=== PATIENT | male | born 1955 | race Caucasian/White ===

== ENCOUNTER 2017-07-18 05:41 | Day surgery (SDC) | payer OTHER ==
[~2017-07-18] VITALS: Ht 180.3 cm; Wt 59.0 kg
[2017-07-18] MEDS ORDERED: LACTATED RINGERS 1,000 ML IV SCH (06:17)
[2017-07-18 06:18] VITALS: BP 131/82
[2017-07-18] MEDS ORDERED: LIDOCAINE 1%, 2ML SQ PRN (06:30)
[2017-07-18] MEDS ORDERED: LEVO75TA5 PO (06:34)
[2017-07-18] MEDS ORDERED: THROMBIN 5,000 UNIT VIAL TP ONE (06:53)
[2017-07-18] MEDS ORDERED: EPINEPHRINE 1 MG/ML, 1ML ONE (06:53)
[2017-07-18] MEDS ORDERED: BUPIVACAINE/PF 0.5% ONE (06:53)
[2017-07-18] MEDS ORDERED: BACITRACIN 50,000 UNIT ONE (06:53)
[2017-07-18] MEDS ORDERED: PROPOFOL 10 MG/ML, 20ML ONE (07:04)
[2017-07-18] MEDS ORDERED: DEXAMETHASONE 4 MG/ML, 1ML ONE ×2 (07:04→07:28)
[2017-07-18] MEDS ORDERED: ONDANSETRON 2MG/ML, 2ML ONE (07:04)
[2017-07-18] MEDS ORDERED: FENTANYL PF 250 MCG/5ML ONE (07:04)
[2017-07-18] MEDS ORDERED: SUCCINYLCHOLINE 20 MG/ML, 10ML ONE (07:04)
[2017-07-18] MEDS ORDERED: MIDAZOLAM 1 MG/ML, 2ML ONE (07:04)
[2017-07-18] MEDS ORDERED: LIDOCAINE GEL 2%, 5ML ONE (07:19)
[2017-07-18] MEDS ORDERED: CEFAZOLIN 1,000 MG ONE (07:23)
[2017-07-18] MEDS ORDERED: ALBUTEROL SULFATE 200 PUFFS/8.5 GR INH ONE (07:28)
[2017-07-18] MEDS ORDERED: ROCURONIUM 10 MG/ML,10ML ONE (07:28)
[2017-07-18] MEDS ORDERED: ALBUTEROL/IPRATROPIUM 2.5MG/0.5MG, 3 ML NPPB PRN (08:00)
[2017-07-18] MEDS ORDERED: EPHEDRINE 50 MG/ML, 1ML IVPush PRN (08:00)
[2017-07-18] MEDS ORDERED: MIDAZOLAM 1 MG/ML, 2ML IV PRN (08:00)
[2017-07-18] MEDS ORDERED: ACETAMINOPHEN 325 MG TABLET PO PRN (08:00)
[2017-07-18] MEDS ORDERED: OXYcodone 5 MG/5 ML ORAL.SOL UDC PO PRN (08:00)
[2017-07-18] MEDS ORDERED: HYDROmorphone 1 MG/ML, 1ML IV PRN (08:00)
[2017-07-18] MEDS ORDERED: ONDANSETRON 2MG/ML, 2ML IVPush PRN (08:00)
[2017-07-18] MEDS ORDERED: PROMETHAZINE 25 MG/ML, 1ML IV PRN (08:00)
[2017-07-18] MEDS ORDERED: FENTANYL PF 100 MCG/2ML ONE (08:38)
[2017-07-18] MEDS ORDERED: ACETAMINOPHEN 650 MG/20.3 ML UDC ONE (08:38)
[2017-07-18] MEDS ORDERED: OXYcodone 5 MG/5 ML ORAL.SOL UDC ONE (08:38)
[2017-07-18] MEDS: FENTANYL PF 100 MCG/2ML IV PRN ×2 (08:43→08:51)
[2017-07-18] MEDS ORDERED: HYDROmorphone 1 MG/ML, 1ML ONE (08:57)
== END 2017-07-18 12:50 ==
LOC: OUT 05:41
PROVIDERS: ATTEND Neurological Surgery
DX: M54.16 Radiculopathy, lumbar region (principal); M48.061 Spinal stenosis, lumbar region without neurogenic claudication; J44.9 Chronic obstructive pulmonary disease, unspecified; Z88.0 Allergy status to penicillin
CPT/HCPCS: 63030; 72100; J0171; J0330; J0690; J1100; J1170; J2250; J2405; J2704; J3010; J3490; J7120